=== PATIENT | male | born 1995 | race Caucasian/White ===

== ENCOUNTER 2017-01-28 14:10 | Emergency (ER) | payer SELFPAY ==
[~2017-01-28] VITALS: Ht 162.6 cm; Wt 72.3 kg
[~2017-01-28 14:10] MED LIST: BENADRYL A12.5 MG/5; BENADRYL A12.5 MG/5 PO; CLARITIN10 MG PO; NORCO 5/325 TAB1 TAB PO; ORAPRED15 MG/5 ML PO; PREDNISONE20 MG PO
[2017-01-28] MEDS ORDERED: BACTRIM DS TAB1 EAC2 PO (15:28)
== END 2017-01-28 15:37 ==
LOC: EDMED 14:10
DX: S61.431A Puncture wound without foreign body of right hand, initial encounter (principal); Z23 Encounter for immunization; F17.200 Nicotine dependence, unspecified, uncomplicated; W26.0XXA Contact with knife, initial encounter; Y93.E9 Activity, other interior property and clothing maintenance; Y92.015 Private garage of single-family (private) house as the place of occurrence of the external cause; Y99.8 Other external cause status